=== PATIENT | female | born 1955 | race Caucasian/White ===

== ENCOUNTER 2024-02-20 06:22 | Day surgery (SDC) | payer MEDICARE ==
[2024-02-20] MEDS ORDERED: Propofol 200 MG/20 ML SDV ONE (07:13)
[2024-02-20] MEDS ORDERED: fentaNYL 50 MCG/ML SDV ONE (07:13)
[2024-02-20] MEDS ORDERED: Midazolam 1 MG/ML 2 ML SDV ONE (07:13)
[2024-02-20] MEDS: Sodium Chloride 0.9% 1,000 ML IV SCH (07:17)
== END 2024-02-20 09:15 | disposition home or self-care (01) ==
LOC: JP.SDS 06:22
PROVIDERS: ATTEND Surgery
DX: Z12.11 Encounter for screening for malignant neoplasm of colon (principal); K57.30 Diverticulosis of large intestine without perforation or abscess without bleeding; F32.A Depression, unspecified
CPT/HCPCS: 00812-QZ; J2250; J2704; J3010; J7030